=== PATIENT | female | born 1945 | race Caucasian/White ===

== ENCOUNTER 2017-07-21 17:13 | Inpatient (IN) | payer OTHER, MEDICARE ==
[2017-07-21 17:34] LABS: BASO # 0.1 x10^3/uL (0.0-0.2); BASO % 0 % (0-3); EOS # 0.1 x10^3/uL (0.0-0.7); EOS % 1 % (0-3); HEMATOCRIT 40.4 % (36.0-47.0); HEMOGLOBIN 13.5 g/dL (12.0-15.5); LYMPH # 1.9 x10^3/uL (1.0-4.8); LYMPH % 12 % (24-48); MEAN CORPUSCULAR HEMOGLOBIN 32 pg (25-35); MEAN CORPUSCULAR HGB CONC 34 g/dL (31-37); MEAN CORPUSCULAR VOLUME 94 fL (79-100); MONO # 1.4 x10^3/uL (0.0-1.1); MONO % 9 % (0-9); NEUT # 12.7 x10^3uL (1.8-7.7); NEUT % 79 % (31-73); PLATELET COUNT 251 x10^3/uL (140-400); RED BLOOD COUNT 4.29 x10^6/uL (3.50-5.40); RED CELL DISTRIBUTION WIDTH 13.3 % (11.5-14.5); WHITE BLOOD COUNT 16.1 x10^3/uL (4.0-11.0)
[2017-07-21 17:35] LABS: ADD MAN DIFF? YES
[2017-07-21 17:52] LABS: ANION GAP 15 (6-14); BLOOD UREA NITROGEN 25 mg/dL (7-20); BUN/CREATININE RATIO 19 (6-20); CALCIUM 10.2 mg/dL (8.5-10.1); CARBON DIOXIDE 21 mmol/L (21-32); CHLORIDE 101 mmol/L (98-107); CREATININE 1.3 mg/dL (0.6-1.0); GFR 40.4; GLUCOSE 181 mg/dL (70-99); POTASSIUM 3.9 mmol/L (3.5-5.1); SODIUM 137 mmol/L (136-145)
[2017-07-21] MEDS: MORPHINE SULFATE 4 MG/ML DISP.SYRIN. IV/SQ ×2 (17:58→20:29)
[2017-07-21 18:00] LABS: ALBUMIN 4.2 g/dL (3.4-5.0); ALBUMIN/GLOBULIN RATIO 0.8 (1.0-1.7); ALK PHOS 77 U/L (46-116); ALT (SGPT) 34 U/L (14-59); AST (SGOT) 28 U/L (15-37); TOTAL BILIRUBIN 1.3 mg/dL (0.2-1.0); TOTAL PROTEIN 9.2 g/dL (6.4-8.2)
[2017-07-21 18:03] LABS: % BANDS 1 % (0-9); % EOS 2 % (0-5); % LYMPHS 16 % (24-48); % MONOS 6 % (0-10); % SEGS 75 % (35-66); PLT ESTIMATE ADEQUATE (ADEQUATE)
[2017-07-21] MEDS ORDERED: ONDANSETRON PF 4 MG/2 ML VIAL. IV (20:15)
[2017-07-21] MEDS: IV NORMAL SALINE 1000ML BAG 1,000 ML IV (21:40)
[2017-07-21] MEDS ORDERED: POLYETHYLENE GLYCOL 3350 17 GM PACKET. PO (22:00)
[2017-07-21] MEDS ORDERED: DOCUSATE SODIUM 100 MG CAPSULE. PO (22:00)
[2017-07-21 23:09] LABS: POC GLUCOSE 205 mg/dL (70-99)
[2017-07-22 01:15] LABS: BILIRUBIN,URINE NEGATIVE (NEG); CLARITY,URINE TURBID; COLOR,URINE YELLOW; GLUCOSE,URINE NEGATIVE (NEG); NITRITE,URINE POSITIVE (NEG); PROTEIN,URINE 100 mg/dL (NEG-TRACE)
[2017-07-22 01:38] LABS: BACTERIA,URINE MANY /HPF (0-FEW); SQUAMOUS EPITHELIAL CELL,UR FEW /LPF; WBC,URINE TNTC /HPF (0-4)
[2017-07-22 03:38] LABS: POC GLUCOSE 155 mg/dL (70-99)
[2017-07-22] MEDS: fentaNYL PF VIAL 100 MCG/2 ML VIAL IV ×2 (06:14→08:13)
[2017-07-22 07:56] LABS: IONIZED CALCIUM 1.18 mmol/L (1.13-1.32)
[2017-07-22 07:57] LABS: ADD MAN DIFF? NO
[2017-07-22 08:02] LABS: BASO % 0 % (0-3); EOS % 0 % (0-3); LYMPH # 1.2 x10^3/uL (1.0-4.8); LYMPH % 10 % (24-48); MEAN CORPUSCULAR HEMOGLOBIN 31 pg (25-35); MEAN CORPUSCULAR HGB CONC 33 g/dL (31-37); MEAN CORPUSCULAR VOLUME 94 fL (79-100); MONO # 0.7 x10^3/uL (0.0-1.1); MONO % 6 % (0-9); NEUT # 10.3 x10^3uL (1.8-7.7); NEUT % 84 % (31-73); PLATELET COUNT 234 x10^3/uL (140-400); RED BLOOD COUNT 4.16 x10^6/uL (3.50-5.40); RED CELL DISTRIBUTION WIDTH 13.2 % (11.5-14.5); WHITE BLOOD COUNT 12.3 x10^3/uL (4.0-11.0)
[2017-07-22 08:08] LABS: INR 1.1 (0.8-1.1); PROTHROMBIN TIME PATIENT 13.8 SEC (11.7-14.0)
[2017-07-22] MEDS: cefTRIAXone IV Push 1 GM VIAL. IVP (08:11)
[2017-07-22 08:32] LABS: ALBUMIN 3.7 g/dL (3.4-5.0); ALBUMIN/GLOBULIN RATIO 0.8 (1.0-1.7); ALK PHOS 89 U/L (46-116); ALT (SGPT) 32 U/L (14-59); ANION GAP 17 (6-14); AST (SGOT) 25 U/L (15-37); BLOOD UREA NITROGEN 25 mg/dL (7-20); BUN/CREATININE RATIO 19 (6-20); CALCIUM 9.8 mg/dL (8.5-10.1); CARBON DIOXIDE 18 mmol/L (21-32); CHLORIDE 105 mmol/L (98-107); CREATININE 1.3 mg/dL (0.6-1.0); GFR 40.4; GLUCOSE 236 mg/dL (70-99); POTASSIUM 3.5 mmol/L (3.5-5.1); SODIUM 140 mmol/L (136-145); TOTAL BILIRUBIN 1.9 mg/dL (0.2-1.0); TOTAL PROTEIN 8.5 g/dL (6.4-8.2)
[2017-07-22 08:34] LABS: POC GLUCOSE 209 mg/dL (70-99)
[2017-07-22] MEDS ORDERED: LIDOCAINE 1% PF 2 ML VIAL. (11:23)
[2017-07-22] MEDS ORDERED: PROCHLORPERAZINE 10 MG/2 ML VIAL. IV (11:30)
[2017-07-22] MEDS ORDERED: ONDANSETRON PF 4 MG/2 ML VIAL. IV ×2 (11:30→19:30)
[2017-07-22] MEDS ORDERED: fentaNYL PF VIAL 100 MCG/2 ML VIAL IV ×3 (11:30→19:30)
[2017-07-22] MEDS: LIDOCAINE 1% PF 2 ML VIAL. ID (11:36)
[2017-07-22 11:41] LABS: POC GLUCOSE 244 mg/dL (70-99)
[2017-07-22] MEDS ORDERED: DEXAMETHASONE SOD PHOS 20 MG/5 ML VIAL. (11:58)
[2017-07-22] MEDS ORDERED: PROPOFOL 20 ML IV (11:58)
[2017-07-22] MEDS ORDERED: ONDANSETRON PF 4 MG/2 ML VIAL. (11:58)
[2017-07-22] MEDS ORDERED: fentaNYL PF VIAL 100 MCG/2 ML VIAL ×2 (11:58→13:47)
[2017-07-22] MEDS: INSULIN ASPART 100 UNIT/ML 10ML VIAL. SQ (12:14)
[2017-07-22] MEDS ORDERED: SEVOFLURANE 61 TO 120 MINUTES. IH (12:50)
[2017-07-22] MEDS: IV RINGERS,LACTATED 1000ML 1,000 ML IV (14:49)
[2017-07-22 14:59] LABS: POC GLUCOSE 177 mg/dL (70-99)
[2017-07-22] MEDS: MORPHINE SULFATE 4 MG/ML DISP.SYRIN. IV ×2 (15:16→15:40)
[2017-07-22 17:24] LABS: POC GLUCOSE 237 mg/dL (70-99)
[2017-07-22] MEDS: oxyCODONE/APAP 5/325 1 TAB TABLET PO (17:35)
[2017-07-22 18:12] LABS: MRSA BY PCR Negative (Negative)
[2017-07-22] MEDS ORDERED: POLYVINYL ALCOHOL 1.4% OPHTH SOLUTION 15ML BOTTLE. OU (19:15)
[2017-07-22] MEDS ORDERED: MORPHINE SULFATE 4 MG/ML DISP.SYRIN. IV ×2 (19:30)
[2017-07-22] MEDS ORDERED: POLYETHYLENE GLYCOL 3350 17 GM PACKET. PO (19:30)
[2017-07-22] MEDS ORDERED: DEXTROSE 50% 25 GM / 50ML DISP.SYRIN. IV (19:30)
[2017-07-22] MEDS: WARFARIN 5 MG TABLET. PO (20:00)
[2017-07-22] MEDS: QUEtiapine 100 MG TABLET. PO (20:40)
[2017-07-22] MEDS: DOCUSATE SODIUM 100 MG CAPSULE. PO (20:41)
[2017-07-22] MEDS: clonazePAM 1 MG TABLET PO (20:41)
[2017-07-22] MEDS: buPROPion SR 100 MG TABLET.SA. PO (20:42)
[2017-07-22 20:50] LABS: POC GLUCOSE 241 mg/dL (70-99)
[2017-07-23] MEDS: IV NORMAL SALINE 1000ML BAG 1,000 ML IV (00:42)
[2017-07-23] MEDS: oxyCODONE IR 5 MG TABLET PO (03:27)
[2017-07-23] MEDS ORDERED: MAGNESIUM HYDROXIDE 2,400 MG/30 ML ORAL.SUSP. PO (06:00)
[2017-07-23] MEDS: PANTOPRAZOLE 40 MG TABLET.DR. PO (06:12)
[2017-07-23] MEDS: HYDROcodone/APAP 7.5/325MG 1 TAB TABLET PO ×3 (06:13→20:24)
[2017-07-23 07:57] LABS: POC GLUCOSE 149 mg/dL (70-99)
[2017-07-23] MEDS: LIDOCAINE (700MG/PATCH) PATCH. TP (08:00)
[2017-07-23] MEDS: cefTRIAXone IV Push 1 GM VIAL. IVP (08:09)
[2017-07-23] MEDS: buPROPion SR 100 MG TABLET.SA. PO ×2 (08:09→20:19)
[2017-07-23] MEDS: SENNOSIDES/DOCUSATE 8.6/50MG TABLET. PO (08:10)
[2017-07-23] MEDS: GLIMEPIRIDE 2 MG TABLET. PO (08:10)
[2017-07-23] MEDS: OMEGA-3 FATTY ACIDS/FISH OIL 1,000 MG CAPSULE. PO (08:10)
[2017-07-23] MEDS: MULTIVITAMIN with MINERAL TABLET. PO (08:10)
[2017-07-23] MEDS: clonazePAM 1 MG TABLET PO ×3 (08:10→20:20)
[2017-07-23] MEDS: CYANOCOBALAMIN (VITAMIN B-12) 1,000 MCG TABLET. PO (08:10)
[2017-07-23] MEDS: DOCUSATE SODIUM 100 MG CAPSULE. PO ×2 (08:11→21:00)
[2017-07-23] MEDS: MELOXICAM 7.5 MG TABLET PO (08:11)
[2017-07-23] MEDS: ASPIRIN CHEWABLE 81 MG TABLET. PO (08:11)
[2017-07-23 11:41] LABS: POC GLUCOSE 163 mg/dL (70-99)
[2017-07-23 15:32] LABS: ADD MAN DIFF? NO; INR 1.1 (0.8-1.1); PROTHROMBIN TIME PATIENT 13.6 SEC (11.7-14.0)
[2017-07-23 15:44] LABS: ALBUMIN 3.1 g/dL (3.4-5.0); ALBUMIN/GLOBULIN RATIO 0.7 (1.0-1.7); ALK PHOS 65 U/L (46-116); ALT (SGPT) 32 U/L (14-59); ANION GAP 14 (6-14); AST (SGOT) 44 U/L (15-37); BLOOD UREA NITROGEN 30 mg/dL (7-20); BUN/CREATININE RATIO 25 (6-20); CALCIUM 8.6 mg/dL (8.5-10.1); CARBON DIOXIDE 22 mmol/L (21-32); CHLORIDE 105 mmol/L (98-107); CREATININE 1.2 mg/dL (0.6-1.0); GFR 44.3; GLUCOSE 137 mg/dL (70-99); POTASSIUM 3.4 mmol/L (3.5-5.1); SODIUM 141 mmol/L (136-145); TOTAL BILIRUBIN 0.5 mg/dL (0.2-1.0); TOTAL PROTEIN 7.4 g/dL (6.4-8.2)
[2017-07-23 15:49] LABS: BASO % 0 % (0-3); EOS # 0.2 x10^3/uL (0.0-0.7); EOS % 2 % (0-3); HEMATOCRIT 33.9 % (36.0-47.0); HEMOGLOBIN 11.2 g/dL (12.0-15.5); LYMPH # 2.6 x10^3/uL (1.0-4.8); LYMPH % 19 % (24-48); MEAN CORPUSCULAR HEMOGLOBIN 31 pg (25-35); MEAN CORPUSCULAR HGB CONC 33 g/dL (31-37); MEAN CORPUSCULAR VOLUME 94 fL (79-100); MONO # 1.5 x10^3/uL (0.0-1.1); MONO % 11 % (0-9); NEUT # 9.3 x10^3uL (1.8-7.7); NEUT % 68 % (31-73); PLATELET COUNT 232 x10^3/uL (140-400); RED CELL DISTRIBUTION WIDTH 13.1 % (11.5-14.5); WHITE BLOOD COUNT 13.7 x10^3/uL (4.0-11.0)
[2017-07-23] MEDS ORDERED: BISACODYL 10 MG SUPP.RECT. PR (16:00)
[2017-07-23 16:36] LABS: POC GLUCOSE 111 mg/dL (70-99)
[2017-07-23] MEDS: WARFARIN 6 MG TABLET. PO (17:10)
[2017-07-23] MEDS: QUEtiapine 100 MG TABLET. PO (20:19)
[2017-07-23] MEDS: LACTOBACILLUS RHAMNOSUS GG 1 CAPSULE. PO (20:20)
[2017-07-23 20:30] LABS: POC GLUCOSE 163 mg/dL (70-99)
[2017-07-24 05:04] LABS: INR 1.3 (0.8-1.1); PROTHROMBIN TIME PATIENT 15.7 SEC (11.7-14.0)
[2017-07-24] MEDS: GLIMEPIRIDE 2 MG TABLET. PO (08:01)
[2017-07-24] MEDS: cefTRIAXone IV Push 1 GM VIAL. IVP (08:01)
[2017-07-24] MEDS: CYANOCOBALAMIN (VITAMIN B-12) 1,000 MCG TABLET. PO (08:01)
[2017-07-24] MEDS: PANTOPRAZOLE 40 MG TABLET.DR. PO (08:01)
[2017-07-24 08:05] LABS: POC GLUCOSE 153 mg/dL (70-99)
[2017-07-24] MEDS: HYDROcodone/APAP 7.5/325MG 1 TAB TABLET PO ×3 (08:05→18:42)
[2017-07-24] MEDS: LIDOCAINE (700MG/PATCH) PATCH. TP (08:06)
[2017-07-24] MEDS: SENNOSIDES/DOCUSATE 8.6/50MG TABLET. PO (09:00)
[2017-07-24] MEDS: DOCUSATE SODIUM 100 MG CAPSULE. PO ×2 (09:00→20:37)
[2017-07-24] MEDS: MULTIVITAMIN with MINERAL TABLET. PO (09:20)
[2017-07-24] MEDS: buPROPion SR 100 MG TABLET.SA. PO ×2 (09:20→20:34)
[2017-07-24] MEDS: ASPIRIN CHEWABLE 81 MG TABLET. PO (09:20)
[2017-07-24] MEDS: LACTOBACILLUS RHAMNOSUS GG 1 CAPSULE. PO ×2 (09:20→20:34)
[2017-07-24] MEDS: MELOXICAM 7.5 MG TABLET PO (09:20)
[2017-07-24] MEDS: clonazePAM 1 MG TABLET PO ×3 (09:20→20:35)
[2017-07-24] MEDS: OMEGA-3 FATTY ACIDS/FISH OIL 1,000 MG CAPSULE. PO (09:20)
[2017-07-24 11:33] LABS: POC GLUCOSE 145 mg/dL (70-99)
[2017-07-24] MEDS: WARFARIN 5 MG TABLET. PO (16:48)
[2017-07-24 17:28] LABS: POC GLUCOSE 103 mg/dL (70-99)
[2017-07-24 20:32] LABS: POC GLUCOSE 112 mg/dL (70-99)
[2017-07-24] MEDS: QUEtiapine 100 MG TABLET. PO (20:35)
[2017-07-25 01:11] LABS: C DIFF BY PCR Negative (Negative)
[2017-07-25] MEDS: HYDROcodone/APAP 7.5/325MG 1 TAB TABLET PO ×4 (03:54→17:47)
[2017-07-25 07:56] LABS: POC GLUCOSE 126 mg/dL (70-99)
[2017-07-25 08:56] LABS: INR 1.5 (0.8-1.1); PROTHROMBIN TIME PATIENT 17.4 SEC (11.7-14.0)
[2017-07-25] MEDS: GLIMEPIRIDE 2 MG TABLET. PO (08:56)
[2017-07-25] MEDS: MULTIVITAMIN with MINERAL TABLET. PO (08:57)
[2017-07-25] MEDS: buPROPion SR 100 MG TABLET.SA. PO ×2 (08:57→20:40)
[2017-07-25] MEDS: LACTOBACILLUS RHAMNOSUS GG 1 CAPSULE. PO ×2 (08:57→20:40)
[2017-07-25] MEDS: clonazePAM 1 MG TABLET PO ×3 (08:57→20:41)
[2017-07-25] MEDS: OMEGA-3 FATTY ACIDS/FISH OIL 1,000 MG CAPSULE. PO (08:57)
[2017-07-25] MEDS: DOCUSATE SODIUM 100 MG CAPSULE. PO ×2 (08:57→20:41)
[2017-07-25] MEDS: CYANOCOBALAMIN (VITAMIN B-12) 1,000 MCG TABLET. PO (08:57)
[2017-07-25] MEDS: ASPIRIN CHEWABLE 81 MG TABLET. PO (08:57)
[2017-07-25] MEDS: PANTOPRAZOLE 40 MG TABLET.DR. PO (08:57)
[2017-07-25] MEDS: MELOXICAM 7.5 MG TABLET PO (08:58)
[2017-07-25] MEDS: cefTRIAXone IV Push 1 GM VIAL. IVP (08:58)
[2017-07-25] MEDS: LIDOCAINE (700MG/PATCH) PATCH. TP (08:59)
[2017-07-25] MEDS: SENNOSIDES/DOCUSATE 8.6/50MG TABLET. PO (08:59)
[2017-07-25 11:31] LABS: POC GLUCOSE 126 mg/dL (70-99)
[2017-07-25 16:08] LABS: POC GLUCOSE 79 mg/dL (70-99)
[2017-07-25] MEDS: WARFARIN 3 MG TABLET. PO (17:46)
[2017-07-25] MEDS: QUEtiapine 100 MG TABLET. PO (20:40)
[2017-07-25 20:47] LABS: POC GLUCOSE 119 mg/dL (70-99)
[2017-07-25] MEDS: oxyCODONE/APAP 5/325 1 TAB TABLET PO (20:49)
[2017-07-26 04:51] LABS: INR 1.6 (0.8-1.1); PROTHROMBIN TIME PATIENT 18.2 SEC (11.7-14.0)
[2017-07-26] MEDS: CYANOCOBALAMIN (VITAMIN B-12) 1,000 MCG TABLET. PO (08:09)
[2017-07-26] MEDS: buPROPion SR 100 MG TABLET.SA. PO (08:09)
[2017-07-26] MEDS: CHOLECALCIFEROL (VITAMIN D3) 5,000 UNIT CAPSULE PO (08:09)
[2017-07-26] MEDS: GLIMEPIRIDE 2 MG TABLET. PO (08:09)
[2017-07-26] MEDS: LIDOCAINE (700MG/PATCH) PATCH. TP (08:10)
[2017-07-26] MEDS: clonazePAM 1 MG TABLET PO ×2 (08:10→15:14)
[2017-07-26] MEDS: ASPIRIN CHEWABLE 81 MG TABLET. PO (08:10)
[2017-07-26] MEDS: MULTIVITAMIN with MINERAL TABLET. PO (08:10)
[2017-07-26] MEDS: LACTOBACILLUS RHAMNOSUS GG 1 CAPSULE. PO (08:10)
[2017-07-26] MEDS: DOCUSATE SODIUM 100 MG CAPSULE. PO (08:10)
[2017-07-26] MEDS: MELOXICAM 7.5 MG TABLET PO (08:10)
[2017-07-26] MEDS: PANTOPRAZOLE 40 MG TABLET.DR. PO (08:10)
[2017-07-26] MEDS: OMEGA-3 FATTY ACIDS/FISH OIL 1,000 MG CAPSULE. PO (08:10)
[2017-07-26] MEDS: HYDROcodone/APAP 7.5/325MG 1 TAB TABLET PO ×2 (08:11→17:47)
[2017-07-26] MEDS: cefTRIAXone IV Push 1 GM VIAL. IVP (08:20)
[2017-07-26] MEDS: SENNOSIDES/DOCUSATE 8.6/50MG TABLET. PO (09:00)
[2017-07-26 14:11] LABS: POC GLUCOSE 122 mg/dL (70-99)
[2017-07-26] MEDS: WARFARIN 4 MG TABLET. PO (15:14)
== END 2017-07-26 18:00 | DRG 470 ==
LOC: ER 17:13 → 4 NORTH 19:25
PROC: 0SRS0J9 Replacement of Left Hip Joint, Femoral Surface with Synthetic Substitute, Cemented, Open Approach (ICD-10-PCS; principal; 2017-07-22 12:00)
DX: S72.002A Fracture of unspecified part of neck of left femur, initial encounter for closed fracture (principal); E11.9 Type 2 diabetes mellitus without complications; F32.9 Major depressive disorder, single episode, unspecified; F41.9 Anxiety disorder, unspecified; I10 Essential (primary) hypertension; K21.9 Gastro-esophageal reflux disease without esophagitis; W01.0XXA Fall on same level from slipping, tripping and stumbling without subsequent striking against object, initial encounter; M19.90 Unspecified osteoarthritis, unspecified site; K59.00 Constipation, unspecified; Y93.89 Activity, other specified; Y92.89 Other specified places as the place of occurrence of the external cause; Y99.8 Other external cause status; Z90.49 Acquired absence of other specified parts of digestive tract; Z90.710 Acquired absence of both cervix and uterus; Z88.1 Allergy status to other antibiotic agents
CPT/HCPCS: 36415; 71045; 73502; 80053; 81001; 82306; 82310; 82962; 85007; 85025; 85610; 87086; 87186; 87324; 87641; 88305; 88311; 93005; 96374; 96376; 97110-GO; 97110-GP; 97116-GP; 97162-GP; 97166-GO; 97530-GO; 97530-GP; 97535-GO; 99285; 99285-25; C1713; J0690; J0696; J1100; J1815; J2270; J2405; J2704; J3010; J7030; J7120